=== PATIENT | male | born 1985 | race Caucasian/White ===

== ENCOUNTER → 2019-06-27 | Outpatient (CLI) | payer OTHER ==
--- NOTE | 2019-06-27 11:14 | Diagnostic Imaging Report ---
INDICATION: Right hip pain status post fall. COMPARISON: None. FINDINGS: Two views of the right hip were obtained and show no fractures, dislocations, or other acute bony abnormalities. Joint spaces are well maintained throughout. The soft tissues appear unremarkable. No radiopaque foreign bodies are identified. IMPRESSION: Unremarkable radiographic exam of the right hip. Dictated by: Dictated on workstation # [id number]
--- NOTE | 2019-06-27 11:15 | Diagnostic Imaging Report ---
INDICATION: Shoulder pain status post fall. COMPARISON: None. FINDINGS: Four views of the right shoulder were obtained. There is no fracture, dislocation, or other acute bony abnormality identified. The soft tissues appear unremarkable. No radiopaque foreign bodies identified. The visualized portions of the right lung are clear. IMPRESSION: No acute fractures or dislocations of the right shoulder. Dictated by: Dictated on workstation # [id number]
--- NOTE | 2019-06-27 11:16 | Diagnostic Imaging Report ---
INDICATION: Fall. COMPARISON: None. FINDINGS: Three views of the right hand were obtained and show no fractures, dislocations, or other acute bony abnormalities. Joint spaces are well maintained throughout. The soft tissues appear unremarkable. No radiopaque foreign bodies are identified. IMPRESSION: Unremarkable radiographic exam of the right hand. Dictated by: Dictated on workstation # [id number]
== END ==
LOC: RAD FS 10:09
PROVIDERS: ATTEND Nurse Practitioner
DX: S60.221A Contusion of right hand, initial encounter (principal); M25.551 Pain in right hip; M25.511 Pain in right shoulder; W19.XXXA Unspecified fall, initial encounter
CPT/HCPCS: 73030; 73130; 73502

== ENCOUNTER → 2019-07-08 | Outpatient (CLI) | payer BC | LOC: CARD 10:45 | PROVIDERS: ATTEND Family Medicine | DX: R00.2 Palpitations (principal) | CPT/HCPCS: 93225; 93226 ==

== ENCOUNTER 2020-12-25 10:05 | Outpatient (RCR) | payer BC | END 2021-03-25 | disposition home or self-care (01) | LOC: ONC 10:05 | PROVIDERS: ATTEND Internal Medicine Hematology & Oncology | DX: D56.9 Thalassemia, unspecified (principal); E83.110 Hereditary hemochromatosis; E83.111 Hemochromatosis due to repeated red blood cell transfusions; D50.9 Iron deficiency anemia, unspecified; D47.3 Essential (hemorrhagic) thrombocythemia | CPT/HCPCS: 99214 ==

== ENCOUNTER → 2021-06-22 | Outpatient (CLI) | payer BC ==
[2021-06-22 08:59] LABS: BASOPHILS # (AUTO) 0.1 10^3/uL (0.0-0.1)
[2021-06-22 09:01] LABS: BASOPHILS % (AUTO) 1 % (0-10); EOSINOPHILS # (AUTO) 0.3 10^3/uL (0.0-0.3); EOSINOPHILS % (AUTO) 4 % (0-10); HEMATOCRIT 39 % (40-54); HEMOGLOBIN 11.2 g/dL (13.3-17.7); LYMPHOCYTES # (AUTO) 1.6 10^3/uL (1.0-4.0); LYMPHOCYTES % (AUTO) 21 % (12-44); MEAN CORPUSCULAR HEMOGLOBIN 18 pg (25-34); MEAN CORPUSCULAR HGB CONC 29 g/dL (32-36); MEAN CORPUSCULAR VOLUME 64 fL (80-99); MONOCYTES # (AUTO) 0.6 10^3/uL (0.0-1.0); MONOCYTES % (AUTO) 8 % (0-12); NEUTROPHILS % (AUTO) 66 % (42-75); PLATELET COUNT 220 10^3/uL (130-400); WHITE BLOOD COUNT 7.6 10^3/uL (4.3-11.0)
== END ==
LOC: EDSTATUS 06-18 08:41 → ONC 08:44
PROVIDERS: ATTEND Internal Medicine Hematology & Oncology
DX: D56.9 Thalassemia, unspecified (principal); D50.9 Iron deficiency anemia, unspecified; D47.3 Essential (hemorrhagic) thrombocythemia
CPT/HCPCS: 85025; G0463; 99213

== ENCOUNTER → 2021-11-04 | Outpatient (CLI) | payer BC ==
--- NOTE | 2021-11-04 10:13 | Diagnostic Imaging Report ---
INDICATION: Right wrist pain. AP, oblique, and lateral views of the right wrist are obtained, as well as a navicular view. No fracture or acute bony abnormality is seen. Joint spaces are unremarkable. IMPRESSION: Negative right wrist. Dictated by: Dictated on workstation # [id number]
== END ==
LOC: RAD FS 09:12
PROVIDERS: ATTEND Nurse Practitioner
DX: M25.531 Pain in right wrist (principal)
CPT/HCPCS: 73110